=== PATIENT | male | born 1965 | race Caucasian/White ===

== ENCOUNTER 2018-06-08 05:59 | Day surgery (SDC) | payer BC ==
[~2018-06-08] VITALS: Ht 182.9 cm; Wt 98.4 kg
== END 2018-06-08 22:43 | disposition home or self-care (01) ==
LOC: ORSCMMR 05:59 → ORD 07:30 → ORSCMMR 07:30
PROVIDERS: Surgery
PROC: 0WQF0ZZ Repair Abdominal Wall, Open Approach (ICD-10-PCS; principal; 2018-06-08 07:30)
DX: K42.9 Umbilical hernia without obstruction or gangrene (principal)
CPT/HCPCS: J0690; J2250; J2405; J3010; J7120